=== PATIENT | male | born 2000 | race Caucasian/White ===

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

== ENCOUNTER 2023-11-10 13:13 | Emergency (ER) | payer OTHER ==
[2023-11-10 13:31] VITALS: BP 107/66; PULSE 106; RESP 16; TEMP 97.9; BMI 26.4
[2023-11-10] MEDS: ONDANSETRON 4 MG/2 ML VIAL IVPUSH ONE (13:45)
[2023-11-10] MEDS: SODIUM CHLORIDE 0.9% 500 ML INFUS.BAG IV ONE (13:45)
[2023-11-10 14:15] LABS: HEMATOCRIT 43.9 % (35.4-49); HEMOGLOBIN 14.8 G/dL (11.7-16.9); MCH 31.7 pg (25.7-33.7); MCHC 33.7 g/dl (32.0-35.9); MEAN CELL VOLUME 94.1 fl (80-96); MEAN PLT VOLUME 9.1 fl (7.5-11.1); PLATELET COUNT 188.4 10^3/uL (134-434); RBC 4.67 10^6/uL (4.00-5.60); RDW 12.6 % (11.9-15.9); WHITE BLOOD COUNT 11.7 10^3/uL (4.0-10.8)
[2023-11-10 14:24] LABS: PLATELET ESTIMATE ADEQUATE
[2023-11-10 14:25] LABS: ALBUMIN 5.1 g/dl (3.4-5.0); BILIRUBIN,TOTAL 0.7 mg/dl (0.2-1); CALCIUM 9.2 mg/dl (8.5-10.1); MAGNESIUM 1.8 mg/dL (1.8-2.4); POTASSIUM 3.6 mmol/L (3.5-5.1); TOT PROT 6.9 g/dl (6.4-8.2)
== END 2023-11-10 14:50 | disposition home or self-care (01) ==
LOC: FER 13:13
PROC: 3E033GC Introduction of Other Therapeutic Substance into Peripheral Vein, Percutaneous Approach (ICD-10-PCS; principal; 2023-11-10)
DX: R42 Dizziness and giddiness (principal); R11.0 Nausea; E86.0 Dehydration; R61 Generalized hyperhidrosis
CPT/HCPCS: 36415; 71045-TC-FY; 80053; 82962; 83735; 84484; 85027; 93005; 99285-25